=== PATIENT | female | born 1995 ===

== ENCOUNTER 2017-01-12 03:35 | Emergency (ER) | payer MEDICAID ==
[2017-01-12 03:49] VITALS: BMI 25.0
[2017-01-12 03:50] VITALS: BP 112/76; PULSE 64; RESP 18; TEMP 98.3; O2SAT 100
[2017-01-12] MEDS ORDERED: Sodium Chloride 0.9% 1,000 ML IV STA (03:59)
--- NOTE | 2017-01-12 04:07 | ED PDOC ---
HPI: General Adult Time Seen by Provider: 01/12/17 03:52 Chief Complaint (Nursing): Back Pain Chief Complaint (Provider): Bodyaches History Per: Patient History/Exam Limitations: no limitations Onset/Duration Of Symptoms: Hrs (6x hours ) Current Symptoms Are (Timing): Still Present Severity: Moderate Additional Complaint(s): 21 year old female with a pertinent medical history of anxiety presents to the ED with complaints of acute onset bodyaches (neck, back, and shoulder aches), and a headache that started 6x hours prior to arrival. She reports having associated symptoms of sensitive abdominal discomfort acutely. She reports taking Excedrin with little to no relief prior to arrival. She denies having nausea, vomiting, diarrhea, and fevers. She also denies having a history of trauma and injuries. Patient has a history of anxiety, but is not under any treatment for it. PMD: Not provided. Past Medical History Reviewed: Historical Data, Nursing Documentation, Vital Signs Vital Signs: Last Vital Signs Temp 98.3 F 01/12/17 03:47 Pulse 64 01/12/17 03:47 Resp 18 01/12/17 03:47 BP 112/76 01/12/17 03:47 Pulse Ox 100 01/12/17 04:12 - Medical History PMH: Anxiety - Surgical History Surgical History: No Surg Hx - Family History Family History: States: No Known Family Hx - Social History Current smoker - smoking cessation education provided: No Alcohol: None Drugs: Denies - Home Medications Home Medications: Ambulatory Orders Medication Instructions Recorded Acetaminophen/Butalbital/Caf 1 - 2 tab PO Q6 PRN #16 tab 01/12/17 [Fioricet] - Allergies Allergies/Adverse Reactions: Allergies Allergy/AdvReac Type Severity Reaction Status Date / Time No Known Allergies Allergy Verified 01/12/17 03:50 Review of Systems ROS Statement: Except As Marked, All Systems Reviewed And Found Negative Constitutional: Positive for: Other (myalgias). Negative for: Fever Gastrointestinal: Negative for: Nausea, Vomiting, Diarrhea Musculoskeletal: Positive for: Neck Pain, Shoulder Pain, Back Pain Neurological: Positive for: Headache Physical Exam - Reviewed Nursing Documentation Reviewed: Yes Vital Signs Reviewed: Yes - Physical Exam Appears: Positive for: Well, Non-toxic, No Acute Distress Head Exam: Positive for: ATRAUMATIC, NORMOCEPHALIC Skin: Positive for: Normal Color, Warm, Dry Eye Exam: Positive for: Normal appearance ENT: Positive for: Normal ENT Inspection Neck: Positive for: Normal Cardiovascular/Chest: Positive for: Regular Rate, Rhythm Respiratory: Positive for: Normal Breath Sounds. Negative for: Respiratory Distress Gastrointestinal/Abdominal: Positive for: Normal Exam, Soft. Negative for: Tenderness Back: Positive for: Normal Inspection. Negative for: Vertebral Tenderness Extremity: Positive for: Normal ROM. Negative for: Tenderness Neurologic/Psych: Positive for: Alert, Oriented (3x), Mood/Affect (anxious affect) - Laboratory Results Result Diagrams: 01/12/17 04:08 01/12/17 04:08 - ECG O2 Sat by Pulse Oximetry: 100 (RA) Pulse Ox Interpretation: Normal Medical Decision Making Medical Decision Makin:52 Initial impression: 21 year old female with diffuse myalgias and a headache insetting of patient's anxiety. Initial plan: * CT head * labs * urine * toradol 10mg IV * IV NS 1,000ml IV 1,000mls/hr * reevaluation 5:20 Labs show no significant clinical abnormalities. Patient reports having mild improvement in symptoms. Patient is diagnosed with a tension headache and is stable for discharge. Patient is referred to PMD ([facility]) to follow up in 2x days. Scribe Attestation: Documented by Grecia Ordonez, acting as a scribe for León Del Toro MD. Provider Scribe Attestation: All medical record entries made by the Scribe were at my direction and personally dictated by me. I have reviewed the chart and agree that the record accurately reflects my personal performance of the history, physical exam, medical decision making, and the department course for this patient. I have also personally directed, reviewed, and agree with the discharge instructions and disposition. Disposition - Clinical Impression Clinical Impression: Anxiety, Headache - Disposition Referrals: [facility] [place] [Outside] Disposition Time: 05:20 Condition: STABLE Prescriptions: Acetaminophen/Butalbital/Caf [Fioricet] 1 - 2 tab PO Q6 PRN #16 tab PRN Reason: headache/back pain Instructions: Tension Headache (ED), Anxiety (ED) Forms: [employer] (Indonesian) Print Language: DIVEHI
[2017-01-12 04:45] LABS: URINE BILIRUBIN NEGATIVE (NEGATIVE); URINE BLOOD SMALL (NEGATIVE); URINE COLOR COLORLESS (YELLOW); URINE GLUCOSE (UA) NEG (Normal); URINE KETONE NEGATIVE (NEGATIVE); URINE LEUKOCYTE ESTERASE NEG Leu/uL (Negative); URINE PROTEIN NEGATIVE (NEGATIVE); URINE UROBILINOGEN 0.2-1.0 mg/dL (0.2-1.0); WBC URINE < 1 /hpf (0-5)
[2017-01-12 04:48] LABS: BASO # 0.1 K/uL (0.0-0.2); BASO % 0.6 % (0.0-2.0); EOS # 0.2 K/uL (0.0-0.7); EOS % 2.2 % (0.0-4.0); HEMATOCRIT 40.1 % (34.0-47.0); LYMPH # 3.2 K/uL (1.0-4.3); LYMPH % 31.3 % (20.0-40.0); MEAN CELL VOLUME 89.7 fl (81.0-99.0); MEAN CORPUSCULAR HEMOGLOBIN 30.1 pg (27.0-31.0); MEAN CORPUSCULAR HGB CONC 33.6 g/dL (33.0-37.0); MEAN PLATELET VOLUME 7.9 fl (7.2-11.7); MONO % 9.6 % (0.0-10.0); NEUT # 5.8 K/uL (1.8-7.0); NEUT % 56.3 % (50.0-75.0); RED CELL DISTRIBUTION WIDTH 13.9 % (11.5-14.5); WHITE BLOOD COUNT 10.3 K/uL (4.8-10.8)
[2017-01-12 04:57] LABS: ALB/GLOB RATIO 1.3 (1.0-2.1); ALKALINE PHOSPHATASE 80 U/L (38-126); ALT/SGPT 34 U/L (9-52); AST/SGOT 21 U/L (14-36); BILIRUBIN,TOTAL 0.4 mg/dl (0.2-1.3); BLOOD UREA NITROGEN 11 mg/dl (7-17); CALCIUM 9.7 mg/dL (8.4-10.2); CARBON DIOXIDE 23 mmol/L (22-30); CHLORIDE 108 mmol/L (98-107); GFR AFRICAN-AMERICAN > 60; GLUCOSE,RANDOM 95 mg/dL (65-105); POTASSIUM 3.6 MMOL/L (3.6-5.0); SODIUM 141 mmol/l (132-148)
== END 2017-01-12 05:38 | disposition home or self-care (01) ==
LOC: H.ER 03:35
DX: F41.9 Anxiety disorder, unspecified (principal); R51 Headache; M54.9 Dorsalgia, unspecified
CPT/HCPCS: 80053; 81003; 82550; 85025; 87804; 96374; 99283; J1885; J7040

== ENCOUNTER 2017-08-17 04:03 | Emergency (ER) | payer MEDICAID ==
[2017-08-17 04:03] VITALS: BMI 25.0
[2017-08-17 04:20] VITALS: BP 119/84; PULSE 65; RESP 18; TEMP 98.3; O2SAT 100
--- NOTE | 2017-08-17 04:58 | ED PDOC ---
HPI: CCC, URI, Sore Throat Time Seen by Provider: 08/17/17 04:22 Chief Complaint (Nursing): ENT Problem Chief Complaint (Provider): ENT Problem History Per: Patient History/Exam Limitations: no limitations Onset/Duration Of Symptoms: Hrs (x6) Current Symptoms Are (Timing): Still Present Associated Symptoms: Sore Throat, Nasal Congestion. denies: Fever, Cough Additional Complaint(s): William Kendall is a 22 year old female with no past medical history, who sis presenting to the ER with complaints of left ear pain, onset around 11 pm. Patient states that the pain was gradual in onset, but increased in severity. She states that she took Excedrin with no relief, and for the last two days felt sense of fullness in ears, but not pain like today. Patient also reports that for the last 3 days she has had flu-like symptoms including runny nose, nasal congestion, and sore throat. She denies any cough, or fever. PMD: Dr. Cast Past Medical History Reviewed: Historical Data, Nursing Documentation, Vital Signs Vital Signs: Last Vital Signs Temp 98.3 F 08/17/17 04:17 Pulse 65 08/17/17 04:17 Resp 18 08/17/17 04:17 BP 119/84 08/17/17 04:17 Pulse Ox 100 08/17/17 05:03 - Medical History PMH: Anxiety - Surgical History Surgical History: No Surg Hx - Family History Family History: States: Unknown Family Hx - Social History Current smoker - smoking cessation education provided: No Alcohol: None Drugs: Denies - Home Medications Home Medications: Ambulatory Orders Medication Instructions Recorded Acetaminophen/Butalbital/Caf 1 - 2 tab PO Q6 PRN #16 tab 01/12/17 [Fioricet] Amoxicillin/Clavulanate [Augmentin 1 tab PO BID #14 tab 08/17/17 875 MG-125 MG] Ibuprofen [Motrin Tab] 600 mg PO Q8 PRN #60 tab 08/17/17 - Allergies Allergies/Adverse Reactions: Allergies Allergy/AdvReac Type Severity Reaction Status Date / Time No Known Allergies Allergy Verified 08/17/17 04:17 Review of Systems ROS Statement: Except As Marked, All Systems Reviewed And Found Negative Constitutional: Negative for: Fever ENT: Positive for: Ear Pain, Nose Discharge, Nose Congestion, Throat Pain Respiratory: Negative for: Cough Physical Exam - Reviewed Nursing Documentation Reviewed: Yes Vital Signs Reviewed: Yes - Physical Exam Appears: Positive for: In Acute Distress (moderate painful) ENT: Positive for: TM Is/Are (erythematous, left TM, retracted with abnormal light reflex), Other (mild tenderness posterior to ear) - ECG O2 Sat by Pulse Oximetry: 100 Medical Decision Making Medical Decision Making: Time: 4:50 Impression: Otitis Media Plan: --Motrin 600 mg PO Scribe Attestation: Documented by Ne Brown acting as a scribe for Clary Joy MD. Scribe Attestation: All medical record entries made by the Scribe were at my direction and personally dictated by me. I have reviewed the chart and agree that the record accurately reflects my personal performance of the history, physical exam, medical decision making, and the department course for this patient. I have also personally directed, reviewed, and agree with the discharge instructions and disposition. Disposition - Clinical Impression Clinical Impression: Otitis media Counseled Patient/Family Regarding: Diagnosis, Need For Followup, Rx Given - Disposition Referrals: Kapil Garvin MD [Family Provider] - 08/19/17 ([facility] DR SOARES EN 2-3 [facility]) Disposition: Routine/Home Disposition Time: 04:55 Condition: STABLE Prescriptions: Amoxicillin/Clavulanate [Augmentin 875 MG-125 MG] 1 tab PO BID #14 tab Ibuprofen [Motrin Tab] 600 mg PO Q8 PRN #60 tab PRN Reason: Pain, Moderate (4-7) Instructions: Ear Infections (Otitis Media) Print Language: GERMAN
== END 2017-08-17 05:30 | disposition home or self-care (01) ==
LOC: H.ER 04:03
DX: H66.90 Otitis media, unspecified, unspecified ear (principal); F41.9 Anxiety disorder, unspecified

== ENCOUNTER 2017-10-26 23:22 | Emergency (ER) | payer MEDICAID ==
[2017-10-26 23:23] VITALS: BMI 25.0
--- NOTE | 2017-10-27 00:34 | ED PDOC ---
HPI: Chest Pain Time Seen by Provider: 10/26/17 23:44 Chief Complaint (Nursing): Chest Pain Chief Complaint (Provider): Chest Pain History Per: Patient History/Exam Limitations: no limitations Onset/Duration Of Symptoms: Hrs (earlier tonight) Current Symptoms Are (Timing): Still Present Associated Symptoms: Other (Radiating pain to left arm and back, worse with movement or palpataion) Additional Complaint(s): 22 year old female accompanied by aunt presents to ED with complaints of chest pain since earlier tonight and has a past medical history of hypertriglyceridemia and anxiety. (+) weakness and radiation of pain to the left arm and back. (-) fever or cough. Notes pain worsens with left arm movement and confirms that she took ibuprofen 600mg x3 hours [employer]. PCP: Edgar Yip Past Medical History Reviewed: Historical Data, Nursing Documentation, Vital Signs Vital Signs: Last Vital Signs Temp 97.9 F 10/27/17 03:17 Pulse 67 10/27/17 03:17 Resp 14 10/27/17 03:17 BP 109/65 10/27/17 03:17 Pulse Ox 99 10/27/17 03:17 - Medical History PMH: Anxiety Other PMH: hypertriglyceridemia - Surgical History Surgical History: No Surg Hx - Family History Family History: States: Unknown Family Hx - Living Arrangements Living Arrangements: With Family - Social History Current smoker - smoking cessation education provided: No Ex-Smoker (has not smoked in the last 12 months): No Alcohol: None Drugs: Denies - Home Medications Home Medications: Ambulatory Orders Medication Instructions Recorded Acetaminophen/Butalbital/Caf 1 - 2 tab PO Q6 PRN #16 tab 01/12/17 [Fioricet] Amoxicillin/Clavulanate [Augmentin 1 tab PO BID #14 tab 08/17/17 875 MG-125 MG] Ibuprofen [Motrin Tab] 600 mg PO Q8 PRN #60 tab 08/17/17 - Allergies Allergies/Adverse Reactions: Allergies Allergy/AdvReac Type Severity Reaction Status Date / Time No Known Allergies Allergy Verified 10/26/17 23:30 AHMET Risk Score for UA/NSTEMI - AHMET Risk Score Age > 64: NO Known CAD (Stenosis greater than 50%): NO Aspirin use in past 7 days: NO EKG ST changes greater than 0.5mm: NO AHMET Score: 0 Risk %: 5% Curb-65 Severity Score - CURB-65 Severity Score Confusion: No Respiratory Rate greater than/equal to 30: No Systolic BP <90 or Diastolic BP less than/equal 60mmHg: No Age >64: No Curb-65 Score: 0 Percentage 30-day mortality: 0.6% Wells Criteria for PE - Wells Criteria for Pulmonary Embolism Clinical Signs and Symptoms of DVT: No P.E is #1 Diagnosis, or Equally Likely: No Heart Rate >100: No Immobilization at least 3 days;Surgery previous 4 weeks: No Previous, objectively diagnosed PE or DVT: No Hemoptysis: No Malignancy w/treatment within 6 months, or palliative: No Total Score: 0 Review of Systems ROS Statement: Except As Marked, All Systems Reviewed And Found Negative Constitutional: Negative for: Fever Cardiovascular: Positive for: Chest Pain Respiratory: Negative for: Cough Musculoskeletal: Positive for: Arm Pain (pain radiates to left arm), Back Pain ( pain radiates to back) Physical Exam - Reviewed Nursing Documentation Reviewed: Yes Vital Signs Reviewed: Yes - Physical Exam Appears: Positive for: Non-toxic, No Acute Distress Skin: Positive for: Normal Color, Warm, Dry Eye Exam: Positive for: Normal appearance Neck: Positive for: Normal Cardiovascular/Chest: Positive for: Regular Rate, Rhythm. Negative for: Chest Non Tender (TTP of left chest wall), Murmur Respiratory: Positive for: Normal Breath Sounds. Negative for: Respiratory Distress Gastrointestinal/Abdominal: Positive for: Soft. Negative for: Tenderness Extremity: Positive for: Normal ROM. Negative for: Deformity Neurologic/Psych: Positive for: Alert, Oriented. Negative for: Motor/Sensory Deficits - Laboratory Results Result Diagrams: 10/27/17 00:30 10/27/17 00:30 - ECG ECG Rhythm: Positive for: Normal QRS, Normal ST Segment, Sinus Rhythm Rate: 59 O2 Sat by Pulse Oximetry: 99 (RA) Pulse Ox Interpretation: Normal - Radiology X-Ray: Interpreted by Me, Viewed By Me X-Ray Interpretation: No Acute Disease Medical Decision Making Medical Decision Makin Initial impression: chest pain worse w moevment in a young woman, rule out musculoskeletal pain Initial plan: * BETA HCG QUANT * Labs * Trop I * CXR 0120 CXR: NAD 0145 Labs reviewed: no clinically significant abnormalities. Trop: negative 0205 * Toradol 30mg IV * Re-eval 0300 Upon re-evaluation patient notes improvement in symptoms. Dx: chest wall pain pt to follow up o utpatisue t Scribe Attestation: Documented by Lizzette Brown acting as a scribe for Jeferson Baltazar MD. MD Acevedo Attestation: All medical record entries made by the Scribe were at my direction and personally dictated by me. I have reviewed the chart and agree that the record accurately reflects my personal performance of the history, physical exam, medical decision making, and the department course for this patient. I have also personally directed, reviewed, and agree with the discharge instructions and disposition. Disposition - Clinical Impression Clinical Impression: Chest wall pain - Patient ED Disposition Is Patient to be Admitted: No Counseled Patient/Family Regarding: Studies Performed, Diagnosis, Need For Followup - Disposition Referrals: Edgar Yip MD [Primary Care Provider] - Disposition: Routine/Home Disposition Time: 02:00 Condition: IMPROVED Additional Instructions: follow up with your primary doctor in 1- 2 days for reevaluation take motrin for pain as needed return to the ED with any worsening or concerning symptoms Instructions: Costochondritis Forms: [employer] (Chinese) Print Language: SLOVENIAN
[2017-10-27 01:10] LABS: BASO # 0.1 K/uL (0.0-0.2); BASO % 0.6 % (0.0-2.0); EOS # 0.4 K/uL (0.0-0.7); HEMOGLOBIN 13.5 g/dL (12.0-16.0); LYMPH # 3.3 K/uL (1.0-4.3); LYMPH % 36.8 % (20.0-40.0); MEAN CELL VOLUME 90.4 fl (81.0-99.0); MEAN CORPUSCULAR HEMOGLOBIN 30.3 pg (27.0-31.0); MEAN CORPUSCULAR HGB CONC 33.5 g/dL (33.0-37.0); MEAN PLATELET VOLUME 7.8 fl (7.2-11.7); MONO # 0.9 K/uL (0.0-0.8); MONO % 10.4 % (0.0-10.0); NEUT # 4.3 K/uL (1.8-7.0); NEUT % 48.2 % (50.0-75.0); NRBC % 0.1 % (0.0-0.0); RBC 4.45 Mil/uL (3.80-5.20); RED CELL DISTRIBUTION WIDTH 13.4 % (11.5-14.5)
[2017-10-27 01:18] LABS: ALB/GLOB RATIO 1.1 (1.0-2.1); ALBUMIN 4.1 g/dL (3.5-5.0); ALT/SGPT 38 U/L (9-52); AST/SGOT 22 U/L (14-36); BLOOD UREA NITROGEN 12 mg/dl (7-17); CALCIUM 9.3 mg/dL (8.4-10.2); GFR AFRICAN-AMERICAN > 60; GFR NON-AFRICAN AMERICAN > 60
[2017-10-27 03:06] VITALS: O2SAT 99
[2017-10-27 03:17] VITALS: BP 109/65; RESP 14; TEMP 97.9
[2017-10-27 06:41] VITALS: PULSE 59
--- NOTE | 2017-10-27 09:28 | RAD ---
HISTORY: chest pain COMPARISON: No prior. TECHNIQUE: Chest PA and lateral FINDINGS: LUNGS: No active pulmonary disease. PLEURA: No significant pleural effusion identified. No pneumothorax apparent. CARDIOVASCULAR: Normal. OSSEOUS STRUCTURES: No significant abnormalities. VISUALIZED UPPER ABDOMEN: Normal. OTHER FINDINGS: None. IMPRESSION: No acute cardiopulmonary disease appreciated.
== END 2017-10-27 03:18 | disposition home or self-care (01) ==
LOC: H.ER 23:22
DX: R07.89 Other chest pain (principal); F41.9 Anxiety disorder, unspecified; E78.1 Pure hyperglyceridemia; Z87.891 Personal history of nicotine dependence
CPT/HCPCS: 71046; 80053; 81025; 84484; 84702; 85025; 96374; 99284; J1885